=== PATIENT | female | born 1980 | race Caucasian/White ===

== ENCOUNTER 2019-09-28 19:41 | Emergency (ER) | payer OTHER ==
[~2019-09-28] VITALS: Ht 152.4 cm; Wt 63.5 kg
[~2019-09-28 19:41] MED LIST: ACETAMINOPHEN650 M5; BENADRYL25 MG; C-500500 MG; IRON325; PAXIL20 MG
[2019-09-28 20:14] LABS: URINE BILIRUBIN NEGATIVE (Negative); URINE BLOOD 3+ (Negative); URINE CLARITY TURBID; URINE COLOR YELLOW; URINE GLUCOSE-RANDOM NEGATIVE (Negative); URINE KETONES NEGATIVE (Negative); URINE LEUKOCYTES-REFLEX 3+ (Negative); URINE NITRITE-REFLEX POSITIVE (Negative); URINE PROTEIN 1+ (Negative); URINE UROBILINOGEN 0.2 E.U./dl (0.2-1.0)
[2019-09-28 20:22] LABS: URINE WBC-REFLEX >25 Many /HPF (0-5)
[2019-09-28 20:26] LABS: SQUAMOUS 0-3 Few /LPF (0-3); TRANSITIONAL EPITHEL CELL 0-3 Few /LPF (None Seen)
[2019-09-28 20:27] LABS: CASTS None Seen /LPF (None Seen); CRYSTALS None Seen /LPF (None Seen)
[2019-09-28] MEDS ORDERED: CIPROFLOXACIN500 M1 PO ×2 (20:40→20:46)
[2019-09-28] MEDS ORDERED: LORCET 5-325 M1 EACH PO (20:48)
[2019-09-28 21:07] VITALS: BP 131/84
== END 2019-09-28 21:08 | disposition home or self-care (01) ==
LOC: M.ERS 19:41
PROVIDERS: Emergency Medicine
DX: N39.0 Urinary tract infection, site not specified (principal); Z88.2 Allergy status to sulfonamides; Z98.890 Other specified postprocedural states; Z90.710 Acquired absence of both cervix and uterus; Z85.3 Personal history of malignant neoplasm of breast; Z90.10 Acquired absence of unspecified breast and nipple